=== PATIENT | female | born 1965 | race Caucasian/White ===

== ENCOUNTER → 2022-01-25 | Day surgery (SDC) | payer BC ==
[~2022-01-25] MED LIST: ACETAMINOPHEN 1000 MG/100 ML IV ONE; ASPIRIN81 MG PO; B COMPLEX1 EACH PO; BUPIVACAINE HC 0.75% PF 10ML VIAL INJ ONE; CALCIUM PO; CLARITIN-D 241 EACH PO; CLINDAMYCIN PHOS 900MG/ 50ML 50 ML IV ONE; COQ-10100 MG PO; DEXAMETHASONE SOD PHOS INJ 4 MG/ML SDV ONE; FENTANYL CITRATE/PF 100MCG/2 ML INJ ONE; FIBER0.52 GM PO; FLONASE ALLERG9.9 ML INH; FLOVENT HFA17 GM PO; JUICE PLUS PO; LIDOCAINE HCL 1% LOCAL INJ 20 ML VIAL ONE; LIDOCAINE HCL 2% LOCAL INJ 5 ML SDV VIAL INJ ONE; MIDAZOLAM HCL 2 MG/2 ML VIAL ONE; ONDANSETRON HCL INJ 2MG/ML 2ML 2 MG/ML VIAL ONE; PATADAY5 ML OP; PATANASE30.5 GM INH; POVIDONE IODINE 0.05% 0.05 % ML PO ONE; PROPOFOL IV EMULSION 10 MG/ML 20 ML VIAL ONE; QUERCETIN DIHYDR1 GM PO; ROPIVACAINE 0.5% 5 MG/ML 30 ML SDV ONE; SEVOFLURANE INHAL SOLN 250 ML PEN BTL ONE; TACROLIMUS1 MG TOP; TRACE MINERALS PO; TRELEGY ELLIPT1 EACH INH; ZINC PO; [UNRECOGNIZED DRUG - OTHER] PO; [UNRECOGNIZED DRUG - OTHER] PO; [UNRECOGNIZED DRUG - OTHER] PO
[2022-01-25 09:10] VITALS: BP 123/85
== END | disposition home or self-care (01) ==
LOC: EDBD 01-18 15:00 → OR 05:46
PROVIDERS: ATTEND Orthopaedic Surgery
DX: S83.231A Complex tear of medial meniscus, current injury, right knee, initial encounter (principal); S83.281A Other tear of lateral meniscus, current injury, right knee, initial encounter; M22.41 Chondromalacia patellae, right knee; M67.51 Plica syndrome, right knee; J45.909 Unspecified asthma, uncomplicated; M54.9 Dorsalgia, unspecified; X50.1XXA Overexertion from prolonged static or awkward postures, initial encounter; Z88.6 Allergy status to analgesic agent; Z88.0 Allergy status to penicillin; Z88.8 Allergy status to other drugs, medicaments and biological substances; Z88.1 Allergy status to other antibiotic agents; Z91.041 Radiographic dye allergy status; Z91.040 Latex allergy status; Z01.810 Encounter for preprocedural cardiovascular examination; Z01.812 Encounter for preprocedural laboratory examination; Z79.82 Long term (current) use of aspirin
CPT/HCPCS: 0223U; 29882; 36415; 93005; C1713 ×5; J0131; J1100; J2001 ×2; J2250; J2405; J2704; J2795; J3010